=== PATIENT | female | born 1930 | race Caucasian/White ===

== ENCOUNTER → 2019-08-20 | Outpatient (CLI) | payer MEDICARE ==
--- NOTE | 2019-08-20 15:53 | Diagnostic Imaging Report ---
PROCEDURE: CT abdomen and pelvis without contrast. TECHNIQUE: Multiple contiguous axial images were obtained through the abdomen and pelvis without the use of intravenous contrast. Auto Exposure Controls were utilized during the CT exam to meet ALARA standards for radiation dose reduction. INDICATION: Hematuria. FINDINGS: There are no prior studies available for comparison. There is no evidence for nephrolithiasis or urolithiasis and the kidneys do not appear to be obstructed. 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 There is no evidence for hydronephrosis. There are multiple rounded areas of low density involving the left kidney and a single rounded area of low density involving the right kidney. The largest of the lesions on the left measures 6.0 x 8.9 cm while the largest lesion on the right is estimated to be 2.7 x 2.8 cm. I suspect that these are cysts. Even so, ultrasound would be recommended to confirm this. The liver, spleen, pancreas, adrenals, aorta, and inferior vena cava show no sign of an acute abnormality. The gallbladder is not well visualized and may be surgically absent. Most of the stomach lies above the diaphragm in the right lower thorax. There is no pelvic mass or free fluid collection noted. The uterus and urinary bladder are grossly unremarkable. There is a fair amount of fecal material throughout the colon. The appendix is not well visualized, but there are no indirect signs of acute appendicitis. The bone windows show no evidence for an acute fracture or for a destructive lesion. There are post-kyphoplasty changes involving L2, L3, and L4. Patient has also undergone bilateral sacroplasty procedures. There is also a 50% compression fracture of L1. I suspect this is long-standing in nature. The lung bases are generally clear. There are chronic pulmonary changes evident. There is no obvious breast mass. IMPRESSION: 1. There is no evidence for nephrolithiasis or urolithiasis and the kidneys do not appear to be obstructed; however, there do appear to be bilateral cysts. Ultrasound would be recommended to confirm this. 2. There is no acute abnormality of the abdomen or pelvis noted otherwise. 3. Most of the stomach lies above the diaphragm in the right lower thorax. Dictated by: Dictated on workstation # [id number]
== END ==
LOC: RAD FS 12:56
PROVIDERS: ATTEND Nurse Practitioner Family
DX: R31.0 Gross hematuria (principal)
CPT/HCPCS: 74176